=== PATIENT | male | born 1950 | race Hispanic/Latino ===

== ENCOUNTER 2018-11-22 11:33 | Emergency (ER) | payer BC, MEDICARE ==
[2018-11-22 12:52] LABS: BASOPHILS % (AUTO) 0.6 % (0.0-5.0); EOSINOPHILS % (AUTO) 3.4 % (0.0-8.0); HEMATOCRIT 40.6 % (42-54); LYMPHOCYTES % (AUTO) 20.7 % (21.0-51.0); MEAN CORPUSCULAR HEMOGLOBIN 31.2 pg (27.0-33.0); MEAN CORPUSCULAR HGB CONC 34.9 g/dL (32.0-36.0); MEAN CORPUSCULAR VOLUME 89.3 fL (79-99); MONOCYTES % (AUTO) 7.5 % (3.0-13.0); NEUTROPHILS % (AUTO) 67.8 % (40.0-77.0); PLATELET COUNT (AUTO) 218 K/uL (130-400); RED BLOOD CELL COUNT(AUTO) 4.54 MIL/uL (4.50-6.20); RED CELL DISTRIBUTION WIDTH 13.3 % (11.0-15.5); WHITE BLOOD COUNT (AUTO) 7.6 K/uL (4.8-10.8)
[2018-11-22 13:03] LABS: CREATININE 0.9 mg/dL (0.5-1.5); POTASSIUM 3.8 mmol/L (3.5-5.1)
[2018-11-22] MEDS ORDERED: KETOROLAC TROMETHAMINE 15MG/ML ONE ×2 (13:05→14:49)
[2018-11-22] MEDS ORDERED: TRAMADOL HCL 50 MG TABLET ONE (13:05)
[2018-11-22 13:06] LABS: INR 0.97 (0.85-1.15); PARTIAL THROMBOPLASTIN TIME 28.3 SEC (26.3-35.5); PROTHROMBIN TIME 10.2 SEC (9.6-11.6)
[2018-11-22 13:09] LABS: BILIRUBIN,TOTAL 0.7 mg/dL (0.2-1.0); TOTAL PROTEIN, SERUM 7.1 g/dL (6.0-8.3)
[2018-11-22 13:58] LABS: APPEARANCE,URINE Clear (CLEAR); BILIRUBIN,URINE Negative (NEGATIVE); COLOR,URINE Yellow (YELLOW); GLUCOSE, URINE (UA) TRACE mg/dL (NEGATIVE); KETONES,URINE Trace mg/dL (NEGATIVE); LEUKOCYTE ESTERASE ,URINE Trace (NEGATIVE); NITRATE,URINE Negative (NEGATIVE); OCCULT BLOOD,URINE Negative (NEGATIVE); PROTEIN,URINE Negative (NEGATIVE)
[2018-11-22 14:03] LABS: BACTERIA,URINE Rare /HPF (None Seen); RBC,URINE 0-1 /HPF (0-1); SQUAMOUS EPITHELIAL CELL,UR Rare /HPF (0-2); WBC,URINE 0-1 /HPF (0-1)
[2018-11-22 14:04] LABS: AMPHET/METH SCREEN,URINE NEGATIVE (NEGATIVE); BARBITURATE SCREEN, URINE NEGATIVE (NEGATIVE); BENZODIAZEPINES SCREEN,URINE NEGATIVE (NEGATIVE); CANNABINOID SCREEN,URINE NEGATIVE (NEGATIVE); COCAINE SCREEN,URINE NEGATIVE (NEGATIVE); OPIATE SCREEN,URINE NEGATIVE (NEGATIVE); PHENCYCLIDINE SCREEN,URINE NEGATIVE (NEGATIVE)
== END 2018-11-22 15:07 | disposition home or self-care (01) ==
LOC: EDH 11:33
DX: M51.36 Other intervertebral disc degeneration, lumbar region (principal); E11.9 Type 2 diabetes mellitus without complications; I10 Essential (primary) hypertension; I25.10 Atherosclerotic heart disease of native coronary artery without angina pectoris
CPT/HCPCS: 36415; 71045; 72131; 80053; 80305; 81001; 82150; 82550; 83690; 84484; 85025; 85610; 85730; 93005; 96374; 96375; 99285; J1885 ×2

== ENCOUNTER 2019-03-13 06:55 | Day surgery (SDC) | payer BC, MEDICARE ==
[~2019-03-13] VITALS: Ht 170.2 cm; Wt 86.2 kg
[~2019-03-13 06:55] MED LIST: AMLO5TAB9 PO; ASPI-555 PO; ATOR20TA65 PO; CLOP75TA32 PO; LOSA100T58 PO; METF-446 PO; METO25TA6 PO; NITR0.4T50 SL; SODIUM CHLORIDE 0.9% 1000ML 1,000 ML IV ONE
[2019-03-13 07:18] VITALS: BP 133/82
[2019-03-13] MEDS ORDERED: PROPOFOL 10 MG/ML 20ML VIAL IV ONE (08:34)
[2019-03-13 08:49] VITALS: BP 97/62
[2019-03-13 08:53] VITALS: BP 97/61
[2019-03-13 08:57] VITALS: BP 98/64
[2019-03-13 09:02] VITALS: BP 104/69
[2019-03-13 09:13] VITALS: BP 128/75
== END 2019-03-13 09:25 | disposition home or self-care (01) ==
LOC: ENDO 06:55 → DAH 06:55 → ENDO 09:25
PROVIDERS: ATTEND Internal Medicine
DX: Z12.11 Encounter for screening for malignant neoplasm of colon (principal); K63.5 Polyp of colon; K62.1 Rectal polyp; K57.30 Diverticulosis of large intestine without perforation or abscess without bleeding; I10 Essential (primary) hypertension; E78.5 Hyperlipidemia, unspecified; E03.9 Hypothyroidism, unspecified; I25.10 Atherosclerotic heart disease of native coronary artery without angina pectoris; E11.9 Type 2 diabetes mellitus without complications; K21.9 Gastro-esophageal reflux disease without esophagitis; Z86.73 Personal history of transient ischemic attack (TIA), and cerebral infarction without residual deficits; Z79.82 Long term (current) use of aspirin; Z98.890 Other specified postprocedural states; Z79.84 Long term (current) use of oral hypoglycemic drugs; Z79.899 Other long term (current) drug therapy; Z90.49 Acquired absence of other specified parts of digestive tract; Z95.5 Presence of coronary angioplasty implant and graft
CPT/HCPCS: 45380; 82948 ×2; A4215; A4221; A4222; A4223; A4606; A4615; A4663; J2704; J7030

== ENCOUNTER 2019-06-14 08:44 | Day surgery (SDC) | payer BC, MEDICARE ==
[~2019-06-14] VITALS: Ht 170.2 cm; Wt 84.4 kg
[~2019-06-14 08:44] MED LIST changes: +CYAN250010 PO
[2019-06-14 09:24] VITALS: BP 130/77
[2019-06-14] MEDS ORDERED: SUCCINYLCHOLINE CHLORIDE 20 MG/ML 10 ML VIAL ONE (09:33)
[2019-06-14] MEDS ORDERED: PROPOFOL 10 MG/ML 20ML VIAL IV ONE (09:33)
[2019-06-14] MEDS ORDERED: LIDOCAINE HCL 1% 20 ML VIAL ONE (09:33)
[2019-06-14 09:50] VITALS: BP 119/80
[2019-06-14 09:55] VITALS: BP 116/74
[2019-06-14 10:14] VITALS: BP 117/77
== END 2019-06-14 10:17 | disposition home or self-care (01) ==
LOC: ENDO 08:44 → DAH 08:44 → ENDO 10:17
PROVIDERS: ATTEND Internal Medicine
DX: K29.50 Unspecified chronic gastritis without bleeding (principal); K44.9 Diaphragmatic hernia without obstruction or gangrene; I10 Essential (primary) hypertension; E78.5 Hyperlipidemia, unspecified; E03.9 Hypothyroidism, unspecified; I25.10 Atherosclerotic heart disease of native coronary artery without angina pectoris; E11.9 Type 2 diabetes mellitus without complications; Z86.010 Personal history of colon polyps; Z79.84 Long term (current) use of oral hypoglycemic drugs; Z79.899 Other long term (current) drug therapy; Z79.82 Long term (current) use of aspirin; Z90.49 Acquired absence of other specified parts of digestive tract; Z98.890 Other specified postprocedural states; Z72.89 Other problems related to lifestyle; Z95.818 Presence of other cardiac implants and grafts; Z86.73 Personal history of transient ischemic attack (TIA), and cerebral infarction without residual deficits
CPT/HCPCS: 43239; 82948; 88305; A4215; A4221; A4222; A4223; A4606; A4620; A4663; J0330; J2704; J7030

== ENCOUNTER → 2019-09-13 | Outpatient (CLI) | payer BC, MEDICARE ==
[~2019-09-13] MED LIST changes: -SODIUM CHLORIDE 0.9% 1000ML 1,000 ML IV ONE
== END ==
LOC: RAH 08:40
PROVIDERS: ATTEND Family Medicine
DX: M54.12 Radiculopathy, cervical region (principal); M48.02 Spinal stenosis, cervical region
CPT/HCPCS: 72141

== ENCOUNTER 2019-10-23 11:00 | Inpatient (IN) | payer BC, MEDICARE ==
[~2019-10-23] VITALS: Ht 171.4 cm; Wt 87.1 kg
[2019-10-23 09:55] LABS: BASOPHILS % (AUTO) 0.6 % (0.0-5.0); EOSINOPHILS % (AUTO) 5.4 % (0.0-8.0); HEMATOCRIT 40.5 % (42-54); LYMPHOCYTES % (AUTO) 19.8 % (21.0-51.0); MEAN CORPUSCULAR HEMOGLOBIN 30.2 pg (27.0-33.0); MEAN CORPUSCULAR HGB CONC 33.6 g/dL (32.0-36.0); MEAN CORPUSCULAR VOLUME 89.8 fL (79-99); MONOCYTES % (AUTO) 7.6 % (3.0-13.0); PLATELET COUNT (AUTO) 232 K/uL (130-400); RED BLOOD CELL COUNT(AUTO) 4.51 MIL/uL (4.50-6.20); WHITE BLOOD COUNT (AUTO) 8.5 K/uL (4.8-10.8)
[2019-10-23 10:02] LABS: POTASSIUM 4.6 mmol/L (3.5-5.1)
[~2019-10-23 11:00] MED LIST changes: +AMLO-257 PO; -AMLO5TAB9 PO; -ASPI-555 PO; +ASPI-556 PO; -CYAN250010 PO; -METO25TA6 PO; -NITR0.4T50 SL
[2019-11-01] MEDS ORDERED: CELE-84 PO (12:40)
[2019-11-01] MEDS ORDERED: METO-408 PO (12:40)
[2019-11-02] VITALS (22 sets, daily range): BP systolic 86–140; BP diastolic 50–88
[2019-11-02] MEDS: CEFAZOLIN SODIUM 1 GM VIAL IVP SCH ×5 (05:00→19:51)
[2019-11-02] MEDS ORDERED: NEOSTIGMINE 5MG/5ML SYR IV ONE (06:46)
[2019-11-02] MEDS ORDERED: MIDAZOLAM HCL 1 MG/ML 2ML VIAL ONE (06:46)
[2019-11-02] MEDS ORDERED: PROPOFOL 10 MG/ML 20ML VIAL IV ONE (06:46)
[2019-11-02] MEDS ORDERED: LIDOCAINE PF 2% 5ML ABBOJECT ONE (06:46)
[2019-11-02] MEDS ORDERED: GLYCOPYRROLATE 1 MG/5 ML SYRINGE ONE ×2 (06:46→10:46)
[2019-11-02] MEDS ORDERED: DEXAMETHASONE SOD PHOSPHATE 10MG/ML 1ML VIAL ONE ×2 (06:46→08:24)
[2019-11-02] MEDS ORDERED: ROCURONIUM 10MG/1ML SYR 10 MG/ML ML ONE (06:47)
[2019-11-02] MEDS ORDERED: FENTANYL CITRATE PF 50 MCG/1 ML 2ML VIAL ONE ×2 (06:47→09:20)
[2019-11-02] MEDS ORDERED: ONDANSETRON HCL 4 MG/2 ML VIAL ONE (06:47)
[2019-11-02] MEDS ORDERED: SODIUM CHLORIDE 0.9% 1000ML 1,000 ML IV ONE (07:09)
[2019-11-02] MEDS ORDERED: THROMBIN-JMI 20000 UNIT KIT TP ONE (08:52)
[2019-11-02] MEDS ORDERED: CEFAZOLIN SODIUM 1 GM VIAL ONE (08:52)
[2019-11-02] MEDS ORDERED: BUPIVACAINE/EPI/PF 0.25% 30ML VIAL IJ ONE (08:52)
[2019-11-02] MEDS ORDERED: MANNITOL 20% 500ML BAG 500 ML IV ONE (08:53)
[2019-11-02] MEDS ORDERED: PHENYLEPHRINE HCL 10 MG/ML 1ML VIAL IV ONE (10:50)
[2019-11-02] MEDS ORDERED: SODIUM CHLORIDE 0.9% 10 ML VIAL IVP PRN (11:00)
[2019-11-02] MEDS ORDERED: PROMETHAZINE HCL 25 MG/ML 1ML AMPULE IM PRN (11:00)
[2019-11-02] MEDS ORDERED: HYDROCODONE/ACETAMINOPHEN 5/325 MG TAB PO PRN (11:00)
--- NOTE | 2019-11-02 12:00 | NUR ---
PROCEDURE REPORT RECEIVED FROM SERGIO RN (PACU). PATIENT S/P ACDF TO C6-C7 BY DR. OVIEDO UNDER GENERAL ANESTHESIA. DRESSING DRY AND INTACT, CERVICAL COLLAR IN PLACE. PATIENT STABLE AT THIS TIME, DENIES ANY DISCOMFORT.
[2019-11-02] MEDS: DEXAMETHASONE SOD PHOSPHATE 4 MG/ML 1ML VIAL IVP SCH ×2 (12:28→18:36)
[2019-11-02] MEDS ORDERED: DEXTROSE 50%-WATER 50 ML DISP.SYRIN IV PRN (16:30)
[2019-11-02] MEDS ORDERED: GLUCAGON 1MG KIT 1 MG ML IM PRN (16:30)
[2019-11-02] MEDS: INSULIN HUMULIN R 100 UNIT/ML 3ML SQ SCH ×2 (16:40→21:03)
[2019-11-02] MEDS ORDERED: METFORMIN HCL 500 MG TABLET PO SCH (17:00)
[2019-11-02] MEDS: MORPHINE SULFATE 2 MG/ML 1ML SYG IVP PRN (18:37)
[2019-11-02] MEDS: LACTATED RINGERS 1000ML 1,000 ML IV SCH (18:37)
[2019-11-02] MEDS ORDERED: ATORVASTATIN CALCIUM 20 MG TABLET PO SCH (21:00)
[2019-11-02] MEDS ORDERED: METOPROLOL SUCCINATE 50 MG TAB.SR.24H PO SCH (21:00)
[2019-11-03 00:04] VITALS: BP 118/73
[2019-11-03] MEDS: LACTATED RINGERS 1000ML 1,000 ML IV SCH (00:16)
[2019-11-03] MEDS: DEXAMETHASONE SOD PHOSPHATE 4 MG/ML 1ML VIAL IVP SCH ×2 (01:19→06:04)
[2019-11-03] MEDS: MORPHINE SULFATE 2 MG/ML 1ML SYG IVP PRN (01:19)
[2019-11-03 04:10] VITALS: BP 111/67
[2019-11-03] MEDS: INSULIN HUMULIN R 100 UNIT/ML 3ML SQ SCH (06:18)
[2019-11-03 08:05] VITALS: BP 116/74
--- NOTE | 2019-11-03 08:37 | NUR ---
DISPO TO HOME, NO HH ORDERED Addendum: 11/03/19 at 0837 by ONOFRE REYNOLDS RN CM Amended: Links added.
--- NOTE | 2019-11-03 08:38 | NUR ---
HERE FOR SCHEDULED PROCEDURE-- EXPECT D/C TODAY, NO CONCERNS VOICED BY PT AUTOMATION TEST DEVELOPER, DETAILED CM ASSESSMENT DEFERRED Addendum: 11/03/19 at 0840 by ONOFRE REYNOLDS RN CM Amended: Links added.
[2019-11-03] MEDS ORDERED: ASPIRIN 81 MG EC TAB PO SCH (09:00)
[2019-11-03] MEDS ORDERED: AMLODIPINE BESYLATE 5 MG TAB PO SCH (09:00)
[2019-11-03] MEDS ORDERED: LOSARTAN 100 MG TABLET PO SCH (09:00)
--- NOTE | 2019-11-03 10:40 | NUR ---
DRESSING CHANGE REMOVED DRESSING TO ANTERIOR NECK, INCISION CLEAN AND DRY, CHERRY INTACT, NO REDNESS,OR DRAINAGE TO SITE, CLEANSED AREA WITH BETADINE AND APPLIED NEW DRESSING, TOLERATED WELL.
--- NOTE | 2019-11-03 10:50 | NUR ---
DISCHARGE INSTRUCTIONS REVIEWED DISCHARGE INSTRUCTIONS WITH PATIENT, PRESCRIPTION GIVEN WELL, REVIEWED S/S AND FOLLOW UP APPT., VERBALIZES UNDERSTANDING. REMOVED 20 PIV LEFT WRIST, NO REDNESS OR EDEMA TO SITE. APPLIED PRESSURE AND PLACED BAND AID.
[2019-12-11] MEDS ORDERED: PANT40TA55 PO (15:43)
[2019-12-11] MEDS ORDERED: PANT40TA54 PO (20:57)
== END 2019-11-03 11:26 | disposition home or self-care (01) | DRG 473 ==
LOC: DAHIP 11-02 05:54 → EDSTATUS 11-02 11:00 → 3CH 11-02 11:46
PROVIDERS: ADMIT Neurological Surgery; ATTEND Neurological Surgery
PROC: 4A11X4G Monitoring of Peripheral Nervous Electrical Activity, Intraoperative, External Approach (ICD-10-PCS; 2019-11-02)
PROC: 0RB30ZZ Excision of Cervical Vertebral Disc, Open Approach (ICD-10-PCS; principal; 2019-11-02 08:36)
PROC: 0RG10A0 Fusion of Cervical Vertebral Joint with Interbody Fusion Device, Anterior Approach, Anterior Column, Open Approach (ICD-10-PCS; 2019-11-02 08:36)
DX: M50.123 Cervical disc disorder at C6-C7 level with radiculopathy (principal); E11.9 Type 2 diabetes mellitus without complications; I25.10 Atherosclerotic heart disease of native coronary artery without angina pectoris; D18.09 Hemangioma of other sites; M48.02 Spinal stenosis, cervical region; I35.0 Nonrheumatic aortic (valve) stenosis; M25.78 Osteophyte, vertebrae; I10 Essential (primary) hypertension; Z98.1 Arthrodesis status; Z90.49 Acquired absence of other specified parts of digestive tract
CPT/HCPCS: 36415; 71045; 72020; 80048; 82948; 85025; A4344; C1713; G0378; J0690; J1100; J1815; J2001; J2250; J2370; J2405; J2704; J2710; J3010; J3490; J7030; J7120

== ENCOUNTER → 2019-12-01 | Outpatient (CLI) | payer BC, MEDICARE ==
[~2019-12-01] MED LIST changes: -AMLO-257 PO; +AMLO5TAB9 PO; +CELE-84 PO; +METO-408 PO; +PANT40TA54 PO; +PANT40TA55 PO
== END | disposition home or self-care (01) ==
LOC: RAH 08:38
PROVIDERS: ATTEND Neurological Surgery
DX: M47.812 Spondylosis without myelopathy or radiculopathy, cervical region (principal)
CPT/HCPCS: 72040

== ENCOUNTER 2019-12-10 20:49 | Observation (INO) | payer BC, MEDICARE ==
[~2019-12-10 20:49] MED LIST changes: -PANT40TA54 PO; -PANT40TA55 PO
[2019-12-10 21:51] LABS: BASOPHILS % (AUTO) 0.5 % (0.0-5.0); EOSINOPHILS % (AUTO) 5.3 % (0.0-8.0); LYMPHOCYTES % (AUTO) 25.4 % (21.0-51.0); MEAN CORPUSCULAR HEMOGLOBIN 30.5 pg (27.0-33.0); MEAN CORPUSCULAR HGB CONC 34.3 g/dL (32.0-36.0); MEAN CORPUSCULAR VOLUME 88.8 fL (79-99); MONOCYTES % (AUTO) 8.1 % (3.0-13.0); NEUTROPHILS % (AUTO) 60.1 % (40.0-77.0); PLATELET COUNT (AUTO) 231 K/uL (130-400); RED BLOOD CELL COUNT(AUTO) 3.94 MIL/uL (4.50-6.20); RED CELL DISTRIBUTION WIDTH 12.6 % (11.0-15.5); WHITE BLOOD COUNT (AUTO) 8.8 K/uL (4.8-10.8)
[2019-12-10 22:00] LABS: POTASSIUM 3.6 mmol/L (3.5-5.1)
[2019-12-10 22:05] LABS: ALBUMIN 3.6 g/dL (3.5-5.0); BILIRUBIN,TOTAL 0.5 mg/dL (0.2-1.0); INR 0.92 (0.85-1.15); PARTIAL THROMBOPLASTIN TIME 26.4 SEC (26.3-35.5); TOTAL PROTEIN, SERUM 6.9 g/dL (6.0-8.3)
[2019-12-10] MEDS ORDERED: ONDANSETRON HCL 4 MG/2 ML VIAL IVP PRN (23:45)
[2019-12-10] MEDS ORDERED: ACETAMINOPHEN 650 MG SUPPOSITORY RC PRN (23:45)
[2019-12-10] MEDS ORDERED: PANTOPRAZOLE SODIUM 80 MG in NS 100ML IVP SCH (23:45)
[2019-12-10] MEDS ORDERED: OCTREOTIDE 1,250 MCG /NS 250ML (DRIP) IV SCH ×2 (23:45)
[2019-12-11] MEDS ORDERED: OCTREOTIDE ACETATE 500 MCG in SODIUM CHLORIDE 0.9% 97.5 ML IV SCH ×2
[2019-12-11] MEDS ORDERED: ONDANSETRON HCL 4 MG/2 ML VIAL IVP PRN
[2019-12-11] MEDS ORDERED: OCTREOTIDE ACETATE 100 MCG/ML AMP IV SCH
[2019-12-11] MEDS ORDERED: PANTOPRAZOLE SODIUM 80 MG in SODIUM CHLORIDE 0.9% 100 ML IV SCH ×2
[2019-12-11] MEDS ORDERED: ACETAMINOPHEN 650 MG SUPPOSITORY RC PRN
[2019-12-11] MEDS ORDERED: OCTREOTIDE ACETATE 100 MCG/ML AMP ONE (00:37)
[2019-12-11] MEDS ORDERED: OCTREOTIDE ACETATE 200 MCG/ML 5 ML VIAL ONE (00:37)
[2019-12-11] MEDS ORDERED: SODIUM CHLORIDE 0.9% 250 ML IV ONE (00:38)
[2019-12-11 05:52] LABS: HEMATOCRIT 33.4 % (42-54); MEAN CORPUSCULAR HEMOGLOBIN 30.4 pg (27.0-33.0); MEAN CORPUSCULAR HGB CONC 33.8 g/dL (32.0-36.0); MEAN CORPUSCULAR VOLUME 89.8 fL (79-99); RED BLOOD CELL COUNT(AUTO) 3.72 MIL/uL (4.50-6.20); RED CELL DISTRIBUTION WIDTH 12.8 % (11.0-15.5); WHITE BLOOD COUNT (AUTO) 8.2 K/uL (4.8-10.8)
[2019-12-11 06:34] LABS: CREATININE 0.9 mg/dL (0.5-1.5); POTASSIUM 4.4 mmol/L (3.5-5.1)
[2019-12-11] MEDS ORDERED: SODIUM CHLORIDE 0.9% 100 ML IV ONE (10:21)
[2019-12-11 10:23] LABS: HEMATOCRIT 33.4 % (42-54)
--- NOTE | 2019-12-11 13:48 | NUR ---
CALL TO [facility] FOR DC PLANNING= STATES PATIENT IS INDEPENDENT, DRIVES, ACTIVE, NO DME, HOME SAFE AND ACCESSIBLE, SHOWER CHAIR; SEES DR. NUNEZ, [facility]. DC PLAN HOME, [facility] TO PROVIDE TRANSPORT Addendum: 12/11/19 at 1536 by ONOFRE REYNOLDS RN CM Amended: Links added.
[2019-12-11 15:17] LABS: HEMATOCRIT 34.9 % (42-54)
[2019-12-11] MEDS ORDERED: PANT40TA25 PO ×2 (15:43→20:57)
== END 2019-12-11 17:20 | disposition home or self-care (01) ==
LOC: EDH 20:49 → INTOOBSV 22:55 → EDHIP 22:55
PROVIDERS: ADMIT Internal Medicine; ATTEND Internal Medicine
DX: K92.2 Gastrointestinal hemorrhage, unspecified (principal); E11.9 Type 2 diabetes mellitus without complications; I10 Essential (primary) hypertension; H91.90 Unspecified hearing loss, unspecified ear; I25.10 Atherosclerotic heart disease of native coronary artery without angina pectoris; M19.90 Unspecified osteoarthritis, unspecified site; Z79.02 Long term (current) use of antithrombotics/antiplatelets; Z79.82 Long term (current) use of aspirin; Z95.5 Presence of coronary angioplasty implant and graft
CPT/HCPCS: 36415 ×2; 80048; 80053; 82270; 85014 ×2; 85018 ×2; 85025; 85027; 85610; 85730; 86850; 86900; 86901; 86922; 93005; 99283; C9113 ×2; G0378 ×3; J2354 ×2; J7050

== ENCOUNTER 2020-06-07 16:47 | Inpatient (IN) | payer BC, MEDICARE ==
[~2020-06-07] VITALS: Ht 170.2 cm; Wt 80.8 kg
[~2020-06-07 16:47] MED LIST changes: +AMLO-257 PO; -AMLO5TAB9 PO; -ASPI-556 PO; -CELE-84 PO; -CLOP75TA32 PO; +PANT40TA54 PO
[2020-06-07 17:33] LABS: BASOPHILS % (AUTO) 0.1 % (0.0-5.0); HEMATOCRIT 42.8 % (42-54); MEAN CORPUSCULAR HEMOGLOBIN 29.7 pg (27.0-33.0); MEAN CORPUSCULAR HGB CONC 34.1 g/dL (32.0-36.0); MONOCYTES % (AUTO) 2.5 % (3.0-13.0); NEUTROPHILS % (AUTO) 92.8 % (40.0-77.0); PLATELET COUNT (AUTO) 170 K/uL (130-400); RED BLOOD CELL COUNT(AUTO) 4.92 MIL/uL (4.50-6.20); RED CELL DISTRIBUTION WIDTH 12.9 % (11.0-15.5)
[2020-06-07 17:41] LABS: INR 1.03 (0.85-1.15)
[2020-06-07] MEDS ORDERED: DEXAMETHASONE SOD PHOSPHATE 4 MG/ML 5ML VIAL ONE (17:42)
[2020-06-07] MEDS ORDERED: CEFTRIAXONE 1G VIAL ONE (17:42)
[2020-06-07 17:43] LABS: PARTIAL THROMBOPLASTIN TIME 29.5 SEC (26.3-35.5)
[2020-06-07] MEDS ORDERED: AZITHROMYCIN 250 MG TABLET PO ONE (17:43)
[2020-06-07] MEDS ORDERED: ACETAMINOPHEN 500 MG TABLET ONE (17:43)
[2020-06-07 17:51] LABS: CARBON DIOXIDE 22 mmol/L (21-32); CHLORIDE 96 mmol/L (101-111); GLOMERULAR FILTR. RATE CALC 79 mL/min (>60); GLUCOSE,RANDOM 174 mg/dL (70-105); POTASSIUM 3.6 mmol/L (3.5-5.1); SODIUM SERUM 134 mmol/L (136-145); UREA NITROGEN, BLOOD 14 mg/dL (7-18)
[2020-06-07 18:02] LABS: ALANINE AMINOTRANSFERASE 23 U/L (12-78); ALBUMIN 3.2 g/dL (3.5-5.0); ASPARTATE AMINOTRANSFERASE 24 U/L (10-37); BILIRUBIN,TOTAL 0.7 mg/dL (0.2-1.0); CREATINE KINASE, TOTAL 65 U/L (21-232); MYOGLOBIN 81 ng/mL (10-92); TOTAL PROTEIN, SERUM 7.4 g/dL (6.0-8.3); TROPONIN I < 0.04 ng/mL (0.00-0.06)
[2020-06-07] MEDS ORDERED: 0.9%NACL 1000ML 1,000 ML IV ONE (19:29)
[2020-06-07 19:41] LABS: ABG OXYGEN SATURATION 91.4 % (95.0-99.0); ABG PCO2 30 mmHg (35-48)
[2020-06-07] MEDS ORDERED: ACETAMINOPHEN 325 MG TAB PO PRN (20:30)
[2020-06-07] MEDS ORDERED: ONDANSETRON 4MG INJ IVP PRN (20:30)
[2020-06-07 21:30] LABS: APPEARANCE,URINE Clear (CLEAR); BILIRUBIN,URINE Negative (NEGATIVE); COLOR,URINE Yellow (YELLOW); GLUCOSE, URINE (UA) >=1000 mg/dL (NEGATIVE); KETONES,URINE 15 mg/dL (NEGATIVE); LEUKOCYTE ESTERASE ,URINE Negative (NEGATIVE); NITRATE,URINE Negative (NEGATIVE); OCCULT BLOOD,URINE Negative (NEGATIVE); PROTEIN,URINE Trace mg/dL (NEGATIVE)
[2020-06-07 21:39] LABS: BACTERIA,URINE Rare /HPF (None Seen); MUCUS,URINE Few LPF (None Seen); RBC,URINE 0-1 /HPF (0-1); SQUAMOUS EPITHELIAL CELL,UR 0-2 /HPF (0-2); WBC,URINE 0-1 /HPF (0-1)
[2020-06-08] MEDS ORDERED: DEXAMETHASONE 4 MG TAB ONE (08:27)
[2020-06-08] MEDS ORDERED: CEFTRIAXONE 1G VIAL ONE (08:27)
[2020-06-08] MEDS: CEFTRIAXONE 1G VIAL IVP SCH (09:00)
[2020-06-08] MEDS ORDERED: DEXAMETHASONE 4 MG TAB PO SCH (09:00)
[2020-06-08] MEDS ORDERED: ALBUTEROL INHALER 90MCG/INH IH PRN (12:15)
[2020-06-08] MEDS ORDERED: ONDANSETRON 4MG INJ IVP PRN (12:15)
[2020-06-08] MEDS ORDERED: CLONIDINE HCL 0.1 MG TABLET PO PRN (12:15)
[2020-06-08] MEDS ORDERED: ACETAMINOPHEN 650 MG SUPPOSITORY RC PRN (12:15)
[2020-06-08] MEDS ORDERED: LACTULOSE 20 GM/30 ML UDCUP PO PRN (12:15)
[2020-06-08] MEDS ORDERED: PHARMACY COMMUNICATION MISC SCH (12:15)
[2020-06-08] MEDS ORDERED: INSULIN HUMULIN R 100 UNIT/ML 3ML ONE ×3 (12:38→22:41)
[2020-06-08] MEDS ORDERED: REMDESIVIR (EUA) 520 200 MG in 0.9% NACL 250ML 250 ML IV ONE (14:00)
[2020-06-08] MEDS ORDERED: COMPOUND IV REFRIGERATED 1 EACH IVSOLN MISC PRN (14:00)
[2020-06-08] MEDS: INSULIN HUMULIN R 100 UNIT/ML 3ML SQ SCH ×2 (16:30→21:00)
[2020-06-08] MEDS ORDERED: ENOXAPARIN SODIUM 40 MG/0.4 ML SYRINGE SQ SCH (21:00)
[2020-06-08] MEDS: ENOXAPARIN SODIUM 80 MG/0.8 ML SQ SCH (21:00)
[2020-06-08] MEDS ORDERED: ENOXAPARIN SODIUM 80 MG/0.8 ML SQ ONE (22:40)
[2020-06-09 04:31] LABS: BASOPHILS % (AUTO) 0.1 % (0.0-5.0); HEMATOCRIT 41.2 % (42-54); LYMPHOCYTES % (AUTO) 5.9 % (21.0-51.0); MEAN CORPUSCULAR HEMOGLOBIN 30.4 pg (27.0-33.0); MEAN CORPUSCULAR VOLUME 86.9 fL (79-99); MONOCYTES % (AUTO) 4.5 % (3.0-13.0); NEUTROPHILS % (AUTO) 88.8 % (40.0-77.0); PLATELET COUNT (AUTO) 212 K/uL (130-400); RED BLOOD CELL COUNT(AUTO) 4.74 MIL/uL (4.50-6.20); RED CELL DISTRIBUTION WIDTH 12.9 % (11.0-15.5); WHITE BLOOD COUNT (AUTO) 13.6 K/uL (4.8-10.8)
[2020-06-09 04:51] LABS: ALBUMIN 2.7 g/dL (3.5-5.0); BILIRUBIN,TOTAL 0.3 mg/dL (0.2-1.0); CREATININE 0.7 mg/dL (0.5-1.5); CRP QUANTITATIVE 177.8 mg/L (0.00-9.0); MAGNESIUM 2.5 mg/dL (1.80-2.40); PHOSPHORUS 3.1 mg/dL (2.5-4.9); POTASSIUM 4.1 mmol/L (3.5-5.1); TOTAL PROTEIN, SERUM 6.3 g/dL (6.0-8.3)
[2020-06-09] MEDS: REMDESIVIR LABS MISC SCH (06:00)
[2020-06-09] MEDS: INSULIN HUMULIN R 100 UNIT/ML 3ML SQ SCH ×4 (07:30→21:00)
[2020-06-09] MEDS ORDERED: ENOXAPARIN SODIUM 80 MG/0.8 ML SQ ONE ×2 (08:27→22:32)
[2020-06-09] MEDS ORDERED: ZINC SULFATE 220 CAPSULE ONE (08:28)
[2020-06-09] MEDS ORDERED: ASCORBIC ACID 500 MG TAB ONE (08:28)
[2020-06-09] MEDS ORDERED: DEXAMETHASONE SOD PHOSPHATE 10MG/ML 1ML VIAL ONE (08:28)
[2020-06-09] MEDS ORDERED: ASPIRIN 81MG CHEW TAB ONE (08:28)
[2020-06-09] MEDS ORDERED: CEFTRIAXONE 1G VIAL ONE ×2 (08:29→18:11)
[2020-06-09] MEDS ORDERED: PANTOPRAZOLE 40 MG TAB DR ONE (08:29)
[2020-06-09] MEDS ORDERED: INSULIN HUMULIN R 100 UNIT/ML 3ML ONE ×4 (08:30→22:33)
[2020-06-09] MEDS: DOXYCYCLINE 100MG+NS 250ML 250 ML IV SCH ×2 (08:45→20:45)
[2020-06-09] MEDS: ZINC SULFATE 220 CAPSULE PO SCH (09:00)
[2020-06-09] MEDS: DEXAMETHASONE SOD PHOSPHATE 4 MG/ML 1ML VIAL IVP SCH (09:00)
[2020-06-09] MEDS: ASCORBIC ACID 500 MG TAB PO SCH (09:00)
[2020-06-09] MEDS: ASPIRIN 81MG CHEW TAB PO SCH (09:00)
[2020-06-09] MEDS: PANTOPRAZOLE 40 MG TAB DR PO SCH (09:00)
[2020-06-09] MEDS: ENOXAPARIN SODIUM 80 MG/0.8 ML SQ SCH ×2 (09:00→21:00)
[2020-06-09] MEDS: CEFTRIAXONE 1G VIAL IVP SCH (09:00)
[2020-06-09] MEDS ORDERED: DOXYCYCLINE 100MG+NS 250ML 250 ML IV ONE ×2 (09:33→22:32)
[2020-06-09] MEDS: REMDESIVIR (EUA) 520 100 MG in 0.9% NACL 250ML 250 ML IV SCH (14:00)
[2020-06-09] MEDS ORDERED: CEFTRIAXONE 1G VIAL IVP SCH (18:15)
[2020-06-09] MEDS ORDERED: ASPI-1197 PO (23:27)
[2020-06-09] MEDS ORDERED: FAMO40TA7 PO (23:27)
[2020-06-09] MEDS ORDERED: DAPA5TAB PO (23:27)
[2020-06-10] VITALS: BP 136/83
[2020-06-10 04:00] VITALS: BP 145/85
[2020-06-10] MEDS: REMDESIVIR LABS MISC SCH (06:00)
[2020-06-10 06:24] LABS: ALBUMIN 2.6 g/dL (3.5-5.0); BILIRUBIN,TOTAL 0.3 mg/dL (0.2-1.0); CREATININE 0.7 mg/dL (0.5-1.5); CRP QUANTITATIVE 66.8 mg/L (0.00-9.0); POTASSIUM 3.8 mmol/L (3.5-5.1); TOTAL PROTEIN, SERUM 6.7 g/dL (6.0-8.3)
[2020-06-10] MEDS: INSULIN HUMULIN R 100 UNIT/ML 3ML SQ SCH ×4 (06:47→21:28)
[2020-06-10 07:30] VITALS: BP 130/70
[2020-06-10] MEDS: DOXYCYCLINE 100MG+NS 250ML 250 ML IV SCH ×2 (09:24→20:08)
[2020-06-10] MEDS: CEFTRIAXONE 1G VIAL IVP SCH (09:24)
[2020-06-10] MEDS: DEXAMETHASONE SOD PHOSPHATE 4 MG/ML 1ML VIAL IVP SCH (09:24)
[2020-06-10] MEDS: PANTOPRAZOLE 40 MG TAB DR PO SCH (09:25)
[2020-06-10] MEDS: ZINC SULFATE 220 CAPSULE PO SCH (09:25)
[2020-06-10] MEDS: ASCORBIC ACID 500 MG TAB PO SCH (09:25)
[2020-06-10] MEDS: ASPIRIN 81MG CHEW TAB PO SCH (09:25)
[2020-06-10] MEDS: ENOXAPARIN SODIUM 80 MG/0.8 ML SQ SCH ×2 (09:26→20:07)
[2020-06-10] MEDS: REMDESIVIR (EUA) 520 100 MG in 0.9% NACL 250ML 250 ML IV SCH (14:34)
[2020-06-10 16:00] VITALS: BP 133/86
[2020-06-10 19:00] VITALS: BP 125/74
[2020-06-11] VITALS: BP 119/64
[2020-06-11 04:00] VITALS: BP 148/91
[2020-06-11] MEDS: REMDESIVIR LABS MISC SCH (06:00)
[2020-06-11 06:17] LABS: HEMATOCRIT 41.1 % (42-54); MEAN CORPUSCULAR HEMOGLOBIN 29.8 pg (27.0-33.0); MEAN CORPUSCULAR HGB CONC 34.3 g/dL (32.0-36.0); MEAN CORPUSCULAR VOLUME 86.9 fL (79-99); RED BLOOD CELL COUNT(AUTO) 4.73 MIL/uL (4.50-6.20); RED CELL DISTRIBUTION WIDTH 12.7 % (11.0-15.5)
[2020-06-11 06:40] LABS: ALBUMIN 2.5 g/dL (3.5-5.0); BILIRUBIN,DIRECT 0.1 mg/dL (0.0-0.3); BILIRUBIN,TOTAL 0.4 mg/dL (0.2-1.0); CREATININE 0.8 mg/dL (0.5-1.5); CRP QUANTITATIVE 34.8 mg/L (0.00-9.0); POTASSIUM 3.5 mmol/L (3.5-5.1); TOTAL PROTEIN, SERUM 6.5 g/dL (6.0-8.3)
[2020-06-11] MEDS: INSULIN HUMULIN R 100 UNIT/ML 3ML SQ SCH ×4 (06:49→21:43)
[2020-06-11 09:20] VITALS: BP 139/81
[2020-06-11] MEDS: CEFTRIAXONE 1G VIAL IVP SCH (09:36)
[2020-06-11] MEDS: DEXAMETHASONE SOD PHOSPHATE 4 MG/ML 1ML VIAL IVP SCH (09:36)
[2020-06-11] MEDS: PANTOPRAZOLE 40 MG TAB DR PO SCH (09:37)
[2020-06-11] MEDS: ZINC SULFATE 220 CAPSULE PO SCH (09:37)
[2020-06-11] MEDS: ASPIRIN 81MG CHEW TAB PO SCH (09:37)
[2020-06-11] MEDS: ASCORBIC ACID 500 MG TAB PO SCH (09:37)
[2020-06-11] MEDS: ENOXAPARIN SODIUM 80 MG/0.8 ML SQ SCH ×2 (09:38→20:08)
[2020-06-11] MEDS: DOXYCYCLINE 100MG+NS 250ML 250 ML IV SCH ×2 (13:05→20:07)
[2020-06-11 13:07] VITALS: BP 134/76
[2020-06-11] MEDS: REMDESIVIR (EUA) 520 100 MG in 0.9% NACL 250ML 250 ML IV SCH (15:25)
[2020-06-11] MEDS ORDERED: BENZOCAINE/MENTH/CETYLPYRD CL 1 EACH LOZENGE MM PRN (16:15)
[2020-06-11 16:24] VITALS: BP 129/76
[2020-06-11 19:00] VITALS: BP 116/76
[2020-06-12] VITALS: BP 133/70
[2020-06-12 04:00] VITALS: BP 154/95
[2020-06-12] MEDS: REMDESIVIR LABS MISC SCH (06:00)
[2020-06-12 06:23] LABS: ALBUMIN 2.7 g/dL (3.5-5.0); BILIRUBIN,DIRECT 0.1 mg/dL (0.0-0.3); BILIRUBIN,TOTAL 0.4 mg/dL (0.2-1.0); CREATININE 0.8 mg/dL (0.5-1.5); POTASSIUM 3.4 mmol/L (3.5-5.1); TOTAL PROTEIN, SERUM 6.7 g/dL (6.0-8.3)
[2020-06-12] MEDS: INSULIN HUMULIN R 100 UNIT/ML 3ML SQ SCH ×4 (06:58→22:39)
[2020-06-12 08:00] VITALS: BP 129/78
[2020-06-12] MEDS: ASCORBIC ACID 500 MG TAB PO SCH (09:03)
[2020-06-12] MEDS: PANTOPRAZOLE 40 MG TAB DR PO SCH (09:03)
[2020-06-12] MEDS: CEFTRIAXONE 1G VIAL IVP SCH (09:03)
[2020-06-12] MEDS: ZINC SULFATE 220 CAPSULE PO SCH (09:03)
[2020-06-12] MEDS: ASPIRIN 81MG CHEW TAB PO SCH (09:03)
[2020-06-12] MEDS: ENOXAPARIN SODIUM 80 MG/0.8 ML SQ SCH ×2 (09:04→20:45)
[2020-06-12] MEDS: DOXYCYCLINE 100MG+NS 250ML 250 ML IV SCH ×2 (09:04→20:45)
[2020-06-12] MEDS: DEXAMETHASONE SOD PHOSPHATE 4 MG/ML 1ML VIAL IVP SCH (09:04)
[2020-06-12] MEDS: REMDESIVIR (EUA) 520 100 MG in 0.9% NACL 250ML 250 ML IV SCH (13:31)
[2020-06-12 13:53] VITALS: BP 123/74
[2020-06-12 18:42] VITALS: BP 120/72
[2020-06-12 21:00] VITALS: BP 120/82
[2020-06-13] VITALS: BP 141/86
[2020-06-13 04:00] VITALS: BP 135/76
[2020-06-13] MEDS: REMDESIVIR LABS MISC SCH (06:00)
[2020-06-13] MEDS: INSULIN HUMULIN R 100 UNIT/ML 3ML SQ SCH ×3 (06:45→21:49)
[2020-06-13 07:36] LABS: BASOPHILS % (AUTO) 0.5 % (0.0-5.0); EOSINOPHILS % (AUTO) 0.8 % (0.0-8.0); HEMATOCRIT 42.6 % (42-54); LYMPHOCYTES % (AUTO) 14.7 % (21.0-51.0); MEAN CORPUSCULAR VOLUME 85.9 fL (79-99); NEUTROPHILS % (AUTO) 69.1 % (40.0-77.0); PLATELET COUNT (AUTO) 273 K/uL (130-400); RED BLOOD CELL COUNT(AUTO) 4.96 MIL/uL (4.50-6.20); RED CELL DISTRIBUTION WIDTH 12.8 % (11.0-15.5); WHITE BLOOD COUNT (AUTO) 11.6 K/uL (4.8-10.8)
[2020-06-13 07:49] LABS: ALBUMIN 2.5 g/dL (3.5-5.0); BILIRUBIN,TOTAL 0.5 mg/dL (0.2-1.0); CREATININE 0.8 mg/dL (0.5-1.5); POTASSIUM 3.3 mmol/L (3.5-5.1); TOTAL PROTEIN, SERUM 6.4 g/dL (6.0-8.3)
[2020-06-13] MEDS: ZINC SULFATE 220 CAPSULE PO SCH (09:26)
[2020-06-13] MEDS: ASPIRIN 81MG CHEW TAB PO SCH (09:26)
[2020-06-13] MEDS: ASCORBIC ACID 500 MG TAB PO SCH (09:26)
[2020-06-13] MEDS: ENOXAPARIN SODIUM 80 MG/0.8 ML SQ SCH ×2 (09:26→20:27)
[2020-06-13] MEDS: CEFTRIAXONE 1G VIAL IVP SCH (09:26)
[2020-06-13] MEDS: DOXYCYCLINE 100MG+NS 250ML 250 ML IV SCH (09:26)
[2020-06-13] MEDS: DEXAMETHASONE SOD PHOSPHATE 4 MG/ML 1ML VIAL IVP SCH (09:26)
[2020-06-13] MEDS: PANTOPRAZOLE 40 MG TAB DR PO SCH (09:26)
[2020-06-13 12:16] VITALS: BP 126/76
[2020-06-13 16:00] VITALS: BP 131/84
[2020-06-13] MEDS ORDERED: POTASSIUM CHLORIDE 20MEQ/100ML 100 ML IV PRN (16:45)
[2020-06-13] MEDS ORDERED: POTASSIUM CHLORIDE 10% ELIXIR 20 MEQ/15 ML UDCUP PO PRN (16:45)
[2020-06-13] MEDS ORDERED: LIDOCAINE HCL-MPF 1% 2ML VIAL IV PRN (16:45)
[2020-06-13] MEDS ORDERED: GLUCAGON 1MG KIT 1 MG ML IM PRN (18:00)
[2020-06-13] MEDS ORDERED: DEXTROSE 50%-WATER 50 ML DISP.SYRIN IV PRN (18:00)
[2020-06-13] MEDS: KCL 20 MEQ ERTAB PO PRN ×2 (18:11→22:53)
[2020-06-13 20:00] VITALS: BP 128/82
[2020-06-13] MEDS ORDERED: INSULIN HUMULIN R 100 UNIT/ML 3ML SQ SCH (21:00)
[2020-06-14] VITALS: BP 121/78
[2020-06-14] MEDS: KCL 20 MEQ ERTAB PO PRN (02:22)
[2020-06-14 03:45] LABS: ABG BASE EXCESS 0.6 mmol/L (-2.0-3.0); ABG HCO3 24.1 mmol/L (21.0-28.0); ABG OXYGEN SATURATION 94.5 % (95.0-99.0); ABG PCO2 36 mmHg (35-48)
[2020-06-14 04:00] VITALS: BP 143/87
[2020-06-14 05:45] LABS: HEMATOCRIT 44.3 % (42-54); MEAN CORPUSCULAR HEMOGLOBIN 29.7 pg (27.0-33.0); MEAN CORPUSCULAR HGB CONC 34.3 g/dL (32.0-36.0); MEAN CORPUSCULAR VOLUME 86.5 fL (79-99); RED BLOOD CELL COUNT(AUTO) 5.12 MIL/uL (4.50-6.20); RED CELL DISTRIBUTION WIDTH 12.8 % (11.0-15.5); WHITE BLOOD COUNT (AUTO) 12.4 K/uL (4.8-10.8)
[2020-06-14 06:13] LABS: ALBUMIN 2.5 g/dL (3.5-5.0); BILIRUBIN,TOTAL 0.4 mg/dL (0.2-1.0); CREATININE 0.7 mg/dL (0.5-1.5); MAGNESIUM 1.8 mg/dL (1.80-2.40); POTASSIUM 3.9 mmol/L (3.5-5.1); TOTAL PROTEIN, SERUM 6.7 g/dL (6.0-8.3)
[2020-06-14] MEDS: INSULIN HUMULIN R 100 UNIT/ML 3ML SQ SCH ×3 (06:35→16:30)
[2020-06-14 08:34] VITALS: BP_SYST 107; BP_SYST 130; BP_DIAS 62; BP_DIAS 79
[2020-06-14] MEDS: DEXAMETHASONE SOD PHOSPHATE 4 MG/ML 1ML VIAL IVP SCH (08:56)
[2020-06-14] MEDS: CEFTRIAXONE 1G VIAL IVP SCH (08:57)
[2020-06-14] MEDS: ASPIRIN 81MG CHEW TAB PO SCH (08:57)
[2020-06-14] MEDS: PANTOPRAZOLE 40 MG TAB DR PO SCH (08:57)
[2020-06-14] MEDS: ASCORBIC ACID 500 MG TAB PO SCH (08:57)
[2020-06-14] MEDS: ZINC SULFATE 220 CAPSULE PO SCH (08:58)
[2020-06-14] MEDS: ENOXAPARIN SODIUM 80 MG/0.8 ML SQ SCH (08:58)
[2020-06-14 12:00] VITALS: BP 150/72
[2020-06-14] MEDS ORDERED: METFORMIN HCL 500 MG TABLET PO SCH (17:58)
[2020-06-14 18:57] VITALS: BP 119/84
[2020-06-14] MEDS ORDERED: METOPROLOL SUCCINATE 50 MG TAB.SR.24H PO SCH (21:00)
[2020-06-14] MEDS ORDERED: ATORVASTATIN 20 MG TABLET PO SCH (21:00)
[2020-06-15] MEDS ORDERED: AMLODIPINE 5 MG TAB PO SCH (09:00)
[2020-06-15] MEDS ORDERED: DAPAGLIFLOZIN PROPANEDIOL 5 MG PO SCH (09:00)
[2020-06-15] MEDS ORDERED: ASPIRIN 81MG CHEW TAB PO SCH (09:00)
[2020-06-15] MEDS ORDERED: FAMOTIDINE 20MG TAB PO SCH (09:00)
[2020-06-15] MEDS ORDERED: LOSARTAN 100 MG TABLET PO SCH (09:00)
== END 2020-06-14 16:35 | disposition home or self-care (01) | DRG 177 ==
LOC: EDH 16:47 → EDHIP 20:00 → OBSVTOIN 20:00 → 4AH 06-09 22:57
PROVIDERS: ADMIT Internal Medicine Critical Care Medicine; ATTEND Internal Medicine Critical Care Medicine
PROC: XW033E5 Introduction of Remdesivir Anti-infective into Peripheral Vein, Percutaneous Approach, New Technology Group 5 (ICD-10-PCS; principal; 2020-06-08)
DX: U07.1 COVID-19 (principal); J12.82 Pneumonia due to coronavirus disease 2019; J96.01 Acute respiratory failure with hypoxia; E11.9 Type 2 diabetes mellitus without complications; I10 Essential (primary) hypertension; D72.810 Lymphocytopenia; E78.5 Hyperlipidemia, unspecified; E78.00 Pure hypercholesterolemia, unspecified; I25.10 Atherosclerotic heart disease of native coronary artery without angina pectoris; Z79.82 Long term (current) use of aspirin; Z86.73 Personal history of transient ischemic attack (TIA), and cerebral infarction without residual deficits; Z87.891 Personal history of nicotine dependence; Z95.5 Presence of coronary angioplasty implant and graft; Z79.84 Long term (current) use of oral hypoglycemic drugs; Z79.899 Other long term (current) drug therapy
CPT/HCPCS: 36415; 36600; 71045; 71250; 80048; 80053; 80076; 81001; 82248; 82550; 82728; 82803; 82948; 83605; 83615; 83735; 83874; 84100; 84145; 84484; 85025; 85027; 85378; 85610; 85730; 86140; 86900; 86901; 87040; 87088; 87426; 93005; 94760; G0378; J0696; J1100; J1650; J1815; J3490; J7030; J7050; J8540

== ENCOUNTER → 2021-07-03 | Outpatient (CLI) | payer BC, MEDICARE ==
[~2021-07-03] MED LIST changes: +ASPI-1197 PO; +DAPA5TAB PO; +FAMO40TA7 PO; +GADOTERATE MEGLUMINE 10 MMOL/20 ML VIAL IV ONE; +GLYCOPYRROLATE 1 MG/5 ML SYRINGE ONE; +NEOSTIGMINE 5MG/5ML SYR IV ONE; +PROPOFOL 10 MG/ML 20ML VIAL IV ONE; +ROCURONIUM 10MG/1ML SYR 10 MG/ML ML ONE
== END | disposition home or self-care (01) ==
LOC: RAH 07:50
PROVIDERS: ATTEND Family Medicine
DX: R27.8 Other lack of coordination (principal); R29.810 Facial weakness; H53.2 Diplopia; H53.47 Heteronymous bilateral field defects; H49.01 Third [oculomotor] nerve palsy, right eye
CPT/HCPCS: 70553; A9575; J2704; J2710; J3490

== ENCOUNTER → 2021-07-29 | Outpatient (CLI) | payer BC, MEDICARE ==
[~2021-07-29] MED LIST changes: -GADOTERATE MEGLUMINE 10 MMOL/20 ML VIAL IV ONE; -GLYCOPYRROLATE 1 MG/5 ML SYRINGE ONE; -NEOSTIGMINE 5MG/5ML SYR IV ONE; -PROPOFOL 10 MG/ML 20ML VIAL IV ONE; -ROCURONIUM 10MG/1ML SYR 10 MG/ML ML ONE
== END | disposition home or self-care (01) ==
LOC: RAH 11:00
PROVIDERS: ATTEND Family Medicine
DX: H49.01 Third [oculomotor] nerve palsy, right eye (principal); R27.8 Other lack of coordination; R29.810 Facial weakness; I25.10 Atherosclerotic heart disease of native coronary artery without angina pectoris; Z86.73 Personal history of transient ischemic attack (TIA), and cerebral infarction without residual deficits
CPT/HCPCS: 93880

== ENCOUNTER → 2023-01-20 | Outpatient (CLI) | payer BC, MEDICARE ==
[~2023-01-20] MED LIST changes: -LOSA100T58 PO; +LOSA100T59 PO
== END | disposition home or self-care (01) ==
LOC: RAH 13:54
PROVIDERS: ATTEND Family Medicine
DX: G31.9 Degenerative disease of nervous system, unspecified (principal); G43.009 Migraine without aura, not intractable, without status migrainosus
CPT/HCPCS: 70450; 70460